=== PATIENT | male | born 1960 | race Two or more races ===

== ENCOUNTER 2018-05-23 23:28 | Emergency (ER) | payer MEDICARE, OTHER ==
[~2018-05-23] VITALS: Ht 180.3 cm; Wt 95.3 kg
[2018-05-24 00:16] VITALS: BP 144/93
== END 2018-05-24 00:52 | disposition home or self-care (01) ==
LOC: ER 23:30
DX: L30.9 Dermatitis, unspecified (principal); L21.0 Seborrhea capitis; H92.01 Otalgia, right ear; F17.210 Nicotine dependence, cigarettes, uncomplicated; I10 Essential (primary) hypertension
CPT/HCPCS: 99283; 99406; A4606

== ENCOUNTER 2021-06-25 23:55 | Emergency (ER) | payer MEDICARE, OTHER ==
[~2021-06-25] VITALS: Ht 182.9 cm; Wt 95.3 kg
--- NOTE | 2021-06-26 00:34 | NUR ---
TO BED 2. BIBS C/O R MIDDLE FINGER SWELLING AND PAIN X THIS MORNING. PAIN IS "THROBBING" 10/10 ON P/S. PT DENIES ANY TRAUMA. NO DRAINAGE NOTED. AWAITING MD CAPONE
--- NOTE | 2021-06-26 00:35 | NUR ---
PT SEEN BY DR. MATT ESPINOZA
[2021-06-26] MEDS ORDERED: LIDOCAINE 2% 20 ML MDV ONE (00:36)
[2021-06-26] MEDS ORDERED: BUPIVACAINE 0.5 % PF 150 MG/30 ML VIAL ONE (00:41)
[2021-06-26] MEDS ORDERED: CEPH500T PO (00:47)
[2021-06-26] MEDS ORDERED: CEPHALEXIN MONOHYDRATE 500 MG CAPSULE PO ONE ×2 (00:56→01:00)
[2021-06-26 01:02] VITALS: BP 144/90
--- NOTE | 2021-06-26 01:02 | NUR ---
PT DISCHARGED IN STABLE CONDITION
== END 2021-06-26 01:00 | disposition home or self-care (01) ==
LOC: ER 06-26 00:04
DX: L03.011 Cellulitis of right finger (principal); I10 Essential (primary) hypertension; F17.200 Nicotine dependence, unspecified, uncomplicated; Z79.899 Other long term (current) drug therapy
CPT/HCPCS: 10060; 99282; J3490 ×2